=== PATIENT | female | born 1990 | race African-American/Black ===

== ENCOUNTER 2016-10-20 22:06 | Emergency (ER) | payer OTHER ==
[~2016-10-20 22:06] MED LIST: ANTIBIOTIC FOR UTI; ASPIRIN81 MG; BACTRIM DS TABL1 TA1 DOB; BACTRIM DS TABL1 TA2 PO; BACTROBAN15 GM TOP; BUSPIRONE HCL10 MG PO; CELEXA20 MG PO; CIPRO PO; DARVOCET-N 1001 TAB PO; FLAGYL PO; FOLIC ACID; LORTAB 5/500 TA1 TA1 PO; LOVENOX; MACROBID100 M1 PO; METRONIDAZOLE PO; MINIPRESS1 MG PO; NAPROSYN500 MG PO; NO MEDICATIONS; PRENATAL1 TA1; PYRIDIUM PO; ZOFRAN ODT4 MG PO; ZOFRAN PO; [UNRECOGNIZED DRUG - REMARK]
[2016-10-20 22:26] LABS: URINE SOURCE CLEAN CATCH
[2016-10-20 22:28] LABS: URINE APPEARANCE CLEAR; URINE BILIRUBIN NEG (NEG); URINE BLOOD NEG (NEG); URINE COLOR YELLOW; URINE GLUCOSE NEG (NORM); URINE KETONE NEG (NEG); URINE LEUKOCYTE ESTERASE NEG (NEG); URINE NITRATE NEG (NEG); URINE PROTEIN NEG (NEG); URINE UROBILINOGEN 0.2 MG/DL (NORM)
[2016-10-20 22:31] LABS: MICRO INDICATED? NO
[2016-10-20 22:42] LABS: HEMOGLOBIN 11.8 gm/dL (12.0-16.0); PLATELET COUNT 275 X10e3 (140-420)
[2016-10-20 22:46] LABS: BASOPHIL% 0.2 % (0-2.5); EOSINOPHIL% 0.5 % (0.0-7.0); HEMATOCRIT 35.9 % (35.0-45.0); LYMPHOCYTE# 3.5 X10e3 (1.0-3.5); LYMPHOCYTE% 46.1 % (17.0-45.0); MEAN CELL VOLUME 87.4 FL (83-96); MEAN CORPUSCULAR HEMOGLOBIN 28.8 PG (28-34); MEAN PLATELET VOLUME 8.6 FL (6.5-11.5); MONOCYTE# 0.3 X10e3 (0-1.0); MONOCYTE% 4.3 % (3.0-12.0); NEUTROPHIL# 3.7 X10e3 (1.5-7.1); NEUTROPHIL% 48.9 % (40-75); RED BLOOD COUNT 4.11 X10e (3.90-5.30); RED CELL DISTRIBUTION WIDTH 14.9 % (11.0-15.5); WHITE BLOOD COUNT 7.6 X10e3 (4.0-10.5)
[2016-10-20 22:47] LABS: DIFF IND NO
[2016-10-20 23:02] LABS: ALBUMIN SERUM 3.6 g/dL (3.5-5.0); ALKALINE PHOSPHATASE 77 U/L (32-92); ALT (SGPT) 19 U/L (10-40); AST (SGOT) 19 U/L (10-42); BILIRUBIN, DIRECT <0.1 mg/dL (0.0-0.2); BILIRUBIN,INDIRECT 0.2 mg/dL (0.0-0.9); BILIRUBIN,TOTAL 0.3 mg/dL (0.2-2.0); BLOOD UREA NITROGEN 7 mg/dL (9-23); CALCIUM SERUM 8.9 mg/dL (8.4-10.2); CARBON DIOXIDE 26 mmol/L (22-31); CHLORIDE 102 mmol/L (100-111); CREATININE SERUM 0.7 mg/dL (0.6-1.4); GLOM FILT RATE Estimated ABOVE60 mL/min (>60); GLUCOSE FASTING 85 mg/dL (70-110); LIPASE 20 U/L (22-51); POTASSIUM 3.8 mmol/L (3.5-5.1); PROTEIN TOTAL SERUM 7.3 g/dL (6.0-8.3); SODIUM 133 mmol/L (135-145)
== END 2016-10-20 23:02 | disposition home or self-care (01) ==
LOC: SED 22:06
PROVIDERS: Emergency Medicine
DX: O21.9 Vomiting of pregnancy, unspecified (principal); R10.12 Left upper quadrant pain; O99.331 Smoking (tobacco) complicating pregnancy, first trimester; F17.210 Nicotine dependence, cigarettes, uncomplicated; Z90.49 Acquired absence of other specified parts of digestive tract; Z79.82 Long term (current) use of aspirin
CPT/HCPCS: 36415; 80048; 80076; 81003; 83690; 85025; 96361; 96374; 96375; 99284; J2765

== ENCOUNTER 2017-02-26 19:39 | Emergency (ER) | payer OTHER ==
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
== END 2017-02-26 21:22 | disposition home or self-care (01) ==
LOC: SED 19:39
DX: S63.613A Unspecified sprain of left middle finger, initial encounter (principal); F17.200 Nicotine dependence, unspecified, uncomplicated; X58.XXXA Exposure to other specified factors, initial encounter; Y92.9 Unspecified place or not applicable
CPT/HCPCS: 73130; 99283

== ENCOUNTER 2017-04-16 19:40 | Emergency (ER) | payer SELFPAY ==
--- NOTE | ~2017-04-16 | CT4 ---
[facility] A Service of [facility] RADIOLOGY TEXT RESULTS PATIENT: SHARON BAILEY LOCATION: SED : [birth year] UNIT #: [id number] AGE: [address]: Lambert Morin MD SEX: F ORDER DR: [id number] [address] [address] [id number] E MR#: [id number] Acc #: [id number] NAME: SHARON BAILEY : 1990 SEX: F STUDY DATE/TIME: 04/16/2017 23:13 UNIT: SED ROOM: STUDY DESCRIPTION: CT Abd and Pelv Wo Cont Attending Physician: Lambert Morin M.D. Ordering Physician: Lambert Morin M.D. Primary Care Physician: Hermelinda Licea M.D. MEDICAL IMAGING REPORT This report is preliminary unless electronic signature is present. EXAM CT abdomen and pelvis, noncontrast, kidney stone protocol, 04/16/2017 HISTORY 26-year-old female in the ED complaining of lower abdomen and pelvic pain beginning 2 hours prior to arrival tonight. TECHNIQUE CT examination of the abdomen and pelvis without oral or IV contrast using kidney stone protocol, as ordered. This CT exam was performed with one or more of the following radiation dose reduction techniques: Automatic exposure control, adjustment of mA and/or kV according to patient size, and iterative reconstruction. COMPARISON CT stone study, 03/11/2016. FINDINGS ABDOMEN: Both kidneys, both ureters and the urinary bladder are normal in noncontrast CT appearance. No visible nephrolithiasis or evidence of urinary obstruction. Cholecystectomy. No bile duct dilatation. The liver, pancreas and spleen are normal in size and appearance without contrast. Small bowel and colon are normal in caliber and appearance, as imaged. The appendix is normal. PELVIS FINDINGS: 4.9 cm cyst arising from the right ovary, likely physiologic. Uterus and left ovary appear normal. There is a small amount of free pelvic fluid. Urinary bladder and rectum are negative. No inguinal hernia or abdominal wall hernia. Limited lung base images show no active disease in the lower chest. [facility] A Service of [facility] & [facility] RADIOLOGY TEXT RESULTS PATIENT: SHARON BAILEY LOCATION: [facility] [place] : [birth year] UNIT #: [id number] AGE: [address]: Lambert Morin MD SEX: F ORDER DR: IMPRESSION 1. Negative noncontrast CT examination of the kidneys, ureters and bladder using kidney stone protocol. No visible nephrolithiasis or evidence of urinary obstruction. 2. Cholecystectomy. No bile duct dilatation. 3. Normal appendix. 4. 4.9 cm right ovary cyst with a small amount of free pelvic fluid. Dictated by... Carl Loo M.D. THIS IS AN ELECTRONICALLY VERIFIED REPORT Carl Loo M.D. at 04/20/2017 11:06 PM Alexandre TD: 04/17/2017 13:13 JOB #: [id number] MEDICAL IMAGING REPORT Page 1 of 1
[2017-04-16] MEDS ORDERED: AZITHROMYCIN250 MG PO (19:50)
[2017-04-16] MEDS ORDERED: KLONOPIN0.5 MG PO (19:51)
[2017-04-16] MEDS ORDERED: BUSPAR5 M1 PO (19:51)
[2017-04-16] MEDS ORDERED: PAXIL PO (19:51)
[2017-04-16 21:20] LABS: BASOPHIL% 0.1 % (0-2.5); EOSINOPHIL% 0.2 % (0.0-7.0); HEMOGLOBIN 13.4 gm/dL (12.0-16.0); LYMPHOCYTE% 14.5 % (17.0-45.0); MEAN CELL VOLUME 86.2 FL (83-96); MEAN CORPUSCULAR HEMOGLOBIN 28.1 PG (28-34); MEAN CORPUSCULAR HGB CONC 32.5 g/dL (30-36); MEAN PLATELET VOLUME 8.4 FL (6.5-11.5); MONOCYTE# 0.5 X10e3 (0-1.0); MONOCYTE% 3.5 % (3.0-12.0); NEUTROPHIL# 11.5 X10e3 (1.5-7.1); NEUTROPHIL% 81.7 % (40-75); PLATELET COUNT 258 X10e3 (140-420); RED BLOOD COUNT 4.76 X10e (3.90-5.30); RED CELL DISTRIBUTION WIDTH 18.2 % (11.0-15.5); WHITE BLOOD COUNT 14.1 X10e3 (4.0-10.5)
[2017-04-16 21:29] LABS: DIFF IND NO
[2017-04-16 21:44] LABS: ALBUMIN SERUM 4.2 g/dL (3.5-5.0); BILIRUBIN, DIRECT 0.1 mg/dL (0.0-0.2); BILIRUBIN,INDIRECT 0.2 mg/dL (0.0-0.9); BILIRUBIN,TOTAL 0.3 mg/dL (0.2-2.0); BUN/CREATININE RATIO 7.77; CALCIUM SERUM 9.2 mg/dL (8.4-10.2); CREATININE SERUM 0.9 mg/dL (0.6-1.4); GLOM FILT RATE Estimated 100.9 mL/min (>60); POTASSIUM 3.9 mmol/L (3.5-5.1); PROTEIN TOTAL SERUM 8.1 g/dL (6.0-8.3)
[2017-04-16 22:12] LABS: URINE APPEARANCE CLEAR; URINE BILIRUBIN NEG (NEG); URINE BLOOD 1+ (NEG); URINE COLOR YELLOW; URINE GLUCOSE NEG (NORM); URINE KETONE NEG (NEG); URINE LEUKOCYTE ESTERASE 1+ (NEG); URINE NITRATE POS (NEG); URINE PH 5.5 (5-8); URINE PROTEIN NEG (NEG); URINE SOURCE CLEAN CATCH; URINE SPECIFIC GRAVITY >=1.030 (1.003-1.035); URINE UROBILINOGEN 0.2 MG/DL (NORM)
[2017-04-16 22:13] LABS: MICRO INDICATED? YES
[2017-04-16 22:23] LABS: CULTURE INDICATED? YES; URINE BACTERIA 2+ (NEG); URINE RBC 0-2 /[HPF] (0-2); URINE SQUAMOUS EPITHELIAL CELL OCCAS /[HPF]
[2017-04-19 12:00] LABS: CHLAMYDIA TRACH Not Detected (Not Detected); N GONOR Not Detected (Not Detected)
== END 2017-04-17 00:42 | disposition home or self-care (01) ==
LOC: SED 19:40
PROVIDERS: Emergency Medicine
DX: N39.0 Urinary tract infection, site not specified (principal); N73.0 Acute parametritis and pelvic cellulitis; N83.201 Unspecified ovarian cyst, right side; R19.7 Diarrhea, unspecified; F41.9 Anxiety disorder, unspecified; F17.200 Nicotine dependence, unspecified, uncomplicated
CPT/HCPCS: 36415; 74176; 80048; 80076; 81003; 83690; 84703; 85025; 87086; 87088; 87186; 87491; 87591; 87808; 87905; 96365; 96375; 99284; J0696; J1885; J2270; J2405